=== PATIENT | female | born 1965 | race Caucasian/White ===

== ENCOUNTER 2020-12-01 13:52 | Outpatient (REF) | payer OTHER, SELFPAY ==
--- NOTE | ~2020-12-01 | MM_ITS ---
EXAMINATION: MM SCREENING DIGITAL BREAST TOMOSYNTHESIS, BILATERAL CLINICAL INFORMATION: Screening. Asymptomatic. The lifetime risk of breast cancer based on the Tyrer-Cuzick Model is 11%. COMPARISON: Mammography: 06/11/2019, 03/03/2018, 03/06/2012 TECHNIQUE: Digital breast tomosynthesis is performed in both the craniocaudal and mediolateral oblique views along with computer-aided detection (CAD). Synthesized 2D images are generated from the tomosynthesis. FINDINGS: There are scattered areas of fibroglandular density (ACR BI-RADS breast composition Category b). There are no significant masses, abnormal calcifications, or other abnormalities. Parenchymal pattern is similar to prior studies. There is no developing density. No significant changes. MM/MM tomosynthesis screening BI IMPRESSION: No mammographic evidence of malignancy. ASSESSMENT: BI-RADS 1: Negative RECOMMENDATION: Routine annual mammography screening. This patient's information was entered into a reminder system with a target due date for their next mammogram.
== END 2020-12-01 13:53 | disposition home or self-care (01) ==
LOC: HO.MAMMO 13:52
PROVIDERS: PCP Internal Medicine; Visit Provider Internal Medicine
DX: Z12.31 Encounter for screening mammogram for malignant neoplasm of breast (principal)
CPT/HCPCS: 77063; 77067

== ENCOUNTER 2021-03-08 11:27 | Outpatient (REF) | payer OTHER, SELFPAY ==
[2021-03-08 13:57] LABS: Hematocrit 38.6 % (37.0-47.0); Hemoglobin 12.4 g/dl (12.0-16.0); Mean Corpuscular HGB Conc 32.1 g/dl (31.0-35.0); Mean Corpuscular Hemoglobin 29.8 pg (27.0-33.0); Mean Corpuscular Volume 92.8 fL (80.0-98.0); Mean Platelet Volume 10.4 fL (9.4-12.3); Platelet Count 381 X10*3/uL (160-400); Red Blood Count 4.16 X10*6/uL (4.20-5.50); Red Cell Distribution Width 12.6 % (11.0-16.0); White Blood Count 6.5 X10*3/uL (4.8-10.8)
[2021-03-08 14:16] LABS: Alanine Aminotransferase 21 U/L (0-31); Albumin Level 4.1 g/dL (3.5-5.0); Alkaline Phosphatase 80 U/L (39-117); Anion Gap 12 (12-20); Aspartate Amino Transferase 27 U/L (5-31); Bilirubin Total 0.8 mg/dL (0.0-1.0); Blood Urea Nitrogen 18 mg/dL (9-16); Calcium 9.1 mg/dL (8.4-10.2); Carbon Dioxide 30 mmol/L (22-29); Chloride 102 mmol/L (96-108); Cholesterol 200 mg/dL; Estimated Glomerular Filt Rate > 60; Glucose Fasting 83 mg/dL (60-99); HDL Cholesterol 58 mg/dL; LDL Cholesterol Calculated 121 mg/dl; Potassium 4.6 mmol/L (3.3-5.1); Sodium 139 mmol/L (135-145); Total Protein 7.3 g/dL (6.5-8.0); Triglycerides 107 mg/dL
[2021-03-08 14:41] LABS: TSH reflex Free T4 1.98 uIU/mL (0.32-4.0); Vitamin D 25-OH Total 24.7 ng/mL (>30)
== END 2021-03-08 11:28 | disposition home or self-care (01) ==
LOC: HO.HMGCLDS 11:27
PROVIDERS: PCP Internal Medicine; Visit Provider Internal Medicine
DX: Z00.00 Encounter for general adult medical examination without abnormal findings (principal)
CPT/HCPCS: 36415; 80053; 80061; 82306; 84443; 85027

== ENCOUNTER 2021-12-03 12:33 | Outpatient (REF) | payer OTHER, SELFPAY ==
--- NOTE | ~2021-12-03 | MM_ITS ---
EXAMINATION: MM SCREENING DIGITAL BREAST TOMOSYNTHESIS, BILATERAL CLINICAL INFORMATION: Screening. Asymptomatic. The lifetime risk of breast cancer based on the Tyrer-Cuzick Model is 11%. COMPARISON: Mammography: 12/01/2020, 06/11/2019, 03/03/2018 TECHNIQUE: Digital breast tomosynthesis is performed in both the craniocaudal and mediolateral oblique views along with computer-aided detection (CAD). Synthesized 2D images are generated from the tomosynthesis. FINDINGS: There are scattered areas of fibroglandular density (ACR BI-RADS breast composition Category b). There are no significant masses, abnormal calcifications, or other abnormalities. Parenchymal pattern is similar to prior studies. There is no developing density or architectural abnormality. The axilla and skin contours are unremarkable. No significant changes. MM/MM tomosynthesis screening BI IMPRESSION: No mammographic evidence of malignancy. ASSESSMENT: BI-RADS 1: Negative RECOMMENDATION: Routine annual mammography screening. This patient's information was entered into a reminder system with a target due date for their next mammogram.
== END 2021-12-03 12:34 | disposition home or self-care (01) ==
LOC: HO.MAMMO 12:33
PROVIDERS: Visit Provider Internal Medicine
DX: Z12.31 Encounter for screening mammogram for malignant neoplasm of breast (principal)
CPT/HCPCS: 77063; 77067

== ENCOUNTER 2022-01-18 18:44 | Emergency (ER) | payer OTHER, SELFPAY ==
--- NOTE | ~2022-01-18 | US_ITS ---
EXAMINATION: US VENOUS ULTRASOUND WITH DOPPLER LOWER EXTREMITY, LEFT CLINICAL INFORMATION: Onset of pain with ambulation COMPARISON: None TECHNIQUE: Ultrasound of the deep veins is performed from the hip to the calf with compression sonography and color and pulse Doppler assessment. Spectral analysis with color-flow imaging is performed. FINDINGS: There is normal venous compression and respiratory variation and augmented flow. The visualized common femoral vein, superficial femoral vein, profunda femoral vein, popliteal vein, and the trifurcation region shows no evidence of deep venous thrombosis. There is a joint effusion left knee. This measures approximately 8.4 x 2.5 cm.. The fluid is mildly complex with low-level echoes in the fluid. There is a popliteal fossa cyst measuring 4.2 x 1.5 cm. If the patient's symptoms persist, followup ultrasound in 5 days 7 days might be of value to exclude proximal propagation from a non-visualized calf vein. US/US venous duplex LE LT IMPRESSION: 1. No DVT demonstrated in the left lower extremity. 2. Joint effusion in the knee. 3. Popliteal fossa cyst.
--- NOTE | ~2022-01-18 | XR_ITS ---
EXAMINATION: XR knee LT 2V, XR hip LT min 2V CLINICAL INFORMATION: Reason for Exam pain w/ ambulation COMPARISON: None. TECHNIQUE: Single AP view of the pelvis and AP and frog lateral views of the left hip. 2 views of left knee FINDINGS: No acute fracture or dislocation. Pelvic ring intact. Femoral heads are spherical. Mild bilateral sacroiliac arthrosis. Moderate tricompartmental marginal osteophytes. Narrowing of the medial tibiofemoral compartment joint space. Large knee joint effusion. There is a sclerotic lesion in the proximal left fibula, with rings and arcs morphology is suggestive of a low-grade chondroid lesion such as an enchondroma. XR/XR knee LT 2V IMPRESSION: * No acute fracture or dislocation. * Moderate tricompartmental degenerative change of the knee joint, worse within the medial compartment. * Large knee joint effusion. * Incidental probable enchondroma within the proximal left fibula. Recommend follow-up x-rays of the left knee 12 months.
--- NOTE | ~2022-01-18 | XR_ITS ---
EXAMINATION: XR knee LT 2V, XR hip LT min 2V CLINICAL INFORMATION: Reason for Exam pain w/ ambulation COMPARISON: None. TECHNIQUE: Single AP view of the pelvis and AP and frog lateral views of the left hip. 2 views of left knee FINDINGS: No acute fracture or dislocation. Pelvic ring intact. Femoral heads are spherical. Mild bilateral sacroiliac arthrosis. Moderate tricompartmental marginal osteophytes. Narrowing of the medial tibiofemoral compartment joint space. Large knee joint effusion. There is a sclerotic lesion in the proximal left fibula, with rings and arcs morphology is suggestive of a low-grade chondroid lesion such as an enchondroma. XR/XR hip LT min 2V IMPRESSION: * No acute fracture or dislocation. * Moderate tricompartmental degenerative change of the knee joint, worse within the medial compartment. * Large knee joint effusion. * Incidental probable enchondroma within the proximal left fibula. Recommend follow-up x-rays of the left knee 12 months.
[2022-01-18 19:23] VITALS: PULSE 77; RESP 18; TEMP 37.2; O2SAT 100; BMI 34.7
--- NOTE | 2022-01-18 20:50 | ED_ITS ---
HPI - Extremity Problem General Chief complaint: Extremity Problem Stated complaint: ? blood clot let leg pain Source: patient Mode of arrival: ambulatory Limitations: no limitations History of Present Illness HPI Narrative: 56-year-old female presents with a sudden onset of left knee pain and swelling. Patient was working, sitting at her desk, and stated that she had extraordinary pain and was unable to ambulate without assistance. She does not report any trauma, denies falls, denies blood thinners, fevers, chills, recent travel, is not immunocompromised, and denies hormone replacement therapy. MD Complaint: extremity pain and extremity swelling Onset (ago): hour(s) (Within the hour of arrival) Pain Consistency: constant Location: left and knee Severity scale (1-10): 10 Quality: aching Radiation: distal Relieving factors: elevation and rest Exacerbating factors: range of motion, weight bearing and palpation Associated symptoms: denies other symptoms Related Data Home Medications Medication Instructions Recorded Confirmed docusate sodium 50 mg capsule 50 mg PO DAILY 03/08/21 03/08/21 (Stool Softener) loratadine 10 mg capsule 10 mg PO DAILY 03/08/21 03/08/21 [id number] 18 mg-FA 400 tab PO 12/22/21 mcg-calcium 500 mg-vit K 50 mcg tablet (Women's Multivitamin) Previous Rx's Medication Instructions Recorded clotrimazole 1 % topical cream 1 appl topical BID 2 weeks #15 12/22/21 (Antifungal (clotrimazole)) grams amoxicillin 875 mg-potassium 1 tab PO Q12H 10 days #20 tabs 01/19/22 clavulanate 125 mg tablet Allergies Allergy/AdvReac Type Severity Reaction Status Date / Time No Known Allergies Allergy Unverified 12/22/21 11:00 cats Allergy Unknown sneezing, Uncoded 12/22/21 11:00 itching, runny nose. Hayfebrol Allergy Unknown sneezing, Uncoded 12/22/21 11:00 watery eyes Review of Systems Review of Systems: Constitutional: No Fever, No Chills ENT/Mouth: No Ear Pain, No Hoarseness, No sore throat Eyes: No Eye Pain, No Swelling, No Redness, No Foreign Body Cardiovascular: No Chest Pain, No SOB Respiratory: No Cough, No Dyspnea Gastrointestinal: No Nausea, No Vomiting, No Diarrhea, No abdominal Pain Genitourinary: No Dysuria, No Hematuria Musculoskeletal: positive left knee pain, No Myalgias, No Joint Swelling Skin: No Skin lacerations, No rash Neuro: No Weakness, No Numbness, No Paresthesias, No Loss of Consciousness, No Dizziness, No Headache Psych: No Anxiety/Panic, No Depression Heme/Lymph: no easy bruising, no Lymphadenopathy Endocrine: No Polyuria, No Polydipsia Yes all other systems are reviewed and are negative [facility] Past Medical History Attestation statement: The following information was validated with the patient. 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 Oriented X3. No acute distress. Eyes: Pupils equal, round and reactive to light. ENT: Pharynx normal. Neck: Normal inspection. Neck supple. CVS: Normal heart rate and rhythm. Pulses normal. Respiratory: No respiratory distress. Breath sounds normal. Abdomen: Soft and nontender. Skin: Skin warm and dry. Normal skin color. Normal skin turgor. Extremities: No lower extremity edema. Decreased flexion extension of the left extremity, negative anterior posterior drawer. Brisk capillary refill in equal pulses to bilateral lower extremities. Neuro: No motor deficit. No sensory deficit. Cranial nerves 2-12 intact. Course Course Course Narrative: 56-year-old female presents with the sudden onset of nontraumatic left knee pain and swelling. States that she walks on a regular basis not today, does not report any trauma or falls recently. She is not on any blood thinners, denies hormone use, recent travel, and immuno therapeutics. Labs indicate an elevated white count of 13.8, x-rays, and ultrasound are pending. 23:00 large left knee effusion with incidental finding of enchondroma. Ultrasound negative for DVT. 00:33 50 mL of heme aspirated from left joint effusion. Prepped and draped in sterile fashion. Patient tolerated procedure well. Please refer to procedure note for full details. Patient does have an elevated white count, plan of care is to treat with Augmentin and have patient follow-up with orthopedics. I did give patient crutches because she is having difficult ambulation. Patient verbalized understanding of and agrees to plan of care discharge home. Verbalized understanding of signs and symptoms indicating need for emergent intervention. MDM - Extremity (Nontraumatic) MDM Narrative Medical decision making narrative: Effusion, Machuca's cyst, sprain, Differential Diagnosis Differential diagnosis: Likely cellulitis and deep venous thrombosis of upper extremity Medical Records Attestation: I reviewed the patient's medical records. Lab Data Attestation: I reviewed the patient's lab results. Result diagrams: 01/18/22 22:55 01/18/22 22:55 Labs: Lab Results 01/18/22 01/18/22 01/18/22 Range/Units 22:55 22:55 22:55 WBC 13.8 H (4.8-10.8) X10*3/uL RBC 4.12 L (4.20-5.50) X10*6/uL Hgb 12.3 (12.0-16.0) g/dl Hct 37.8 (37.0-47.0) % MCV 91.7 (80.0-98.0) fL MCH 29.9 (27.0-33.0) pg MCHC 32.5 (31.0-35.0) g/dl RDW 12.7 (11.0-16.0) % Plt Count 344 (160-400) X10*3/uL MPV 9.6 (9.4-12.3) fL Immature Gran % (Auto) 0.4 (0.0-0.4) % Neut % (Auto) 86.8 H (45-73) % Lymph % (Auto) 8.3 L (20-40) % [place] % (Auto) 3.9 (2-11) % Eos % (Auto) 0.2 (0-4) % Baso % (Auto) 0.4 (0-2) % Lymph # (Auto) 1.2 (1.2-4.9) X10*3/uL [place] # (Auto) 0.5 (0.1-1.2) X10*3/uL Eos # (Auto) 0.0 (0.0-0.4) X10*3/uL Baso # (Auto) 0.1 (0.0-0.2) X10*3/uL Abs Immat Gran (auto) 0.05 H (0.00-0.03) X10*3/uL Absolute Neuts (auto) 12.0 H (2.0-8.3) x10*3/uL Absolute Nucleated RBC 0.000 (0.0-0.012) X10*3/uL Nucleated RBC % (auto) 0.0 (0.0-0.2) /100WBC ESR (0-20) MM/HR Sodium 140 (135-145) mmol/L Potassium 4.3 (3.3-5.1) mmol/L Chloride 101 (96-108) mmol/L Carbon Dioxide 25 (22-29) mmol/L Anion Gap 18 (12-20) BUN 19 H (9-16) mg/dL Creatinine 0.94 (0.5-1.4) mg/dL Estim Creat Clear Calc 82.5 Estimated GFR > 60 Random Glucose 103 (60-115) mg/dL Calcium 9.4 (8.4-10.2) mg/dL Total Bilirubin 0.7 (0.0-1.0) mg/dL AST 22 (5-31) U/L ALT 17 (0-31) U/L Alkaline Phosphatase 89 (39-117) U/L C-Reactive Protein 0.28 (< or = 0.50) mg/dL Total Protein 7.5 (6.5-8.0) g/dL Albumin 4.3 (3.5-5.0) g/dL Synovial Source Synovial WBC X10*3/uL Synovial RBC X10*6/uL Synovial Neutrophils % Synovial Lymphocytes % Synovial Monocytes % Synovial Eosinophils % 01/18/22 01/19/22 Range/Units 22:56 00:52 WBC (4.8-10.8) X10*3/uL RBC (4.20-5.50) X10*6/uL Hgb (12.0-16.0) g/dl Hct (37.0-47.0) % MCV (80.0-98.0) fL MCH (27.0-33.0) pg MCHC (31.0-35.0) g/dl RDW (11.0-16.0) % Plt Count (160-400) X10*3/uL MPV (9.4-12.3) fL Immature Gran % (Auto) (0.0-0.4) % Neut % (Auto) (45-73) % Lymph % (Auto) (20-40) % [place] % (Auto) (2-11) % Eos % (Auto) (0-4) % Baso % (Auto) (0-2) % Lymph # (Auto) (1.2-4.9) X10*3/uL [place] # (Auto) (0.1-1.2) X10*3/uL Eos # (Auto) (0.0-0.4) X10*3/uL Baso # (Auto) (0.0-0.2) X10*3/uL Abs Immat Gran (auto) (0.00-0.03) X10*3/uL Absolute Neuts (auto) (2.0-8.3) x10*3/uL Absolute Nucleated RBC (0.0-0.012) X10*3/uL Nucleated RBC % (auto) (0.0-0.2) /100WBC ESR 27 H (0-20) MM/HR Sodium (135-145) mmol/L Potassium (3.3-5.1) mmol/L Chloride (96-108) mmol/L Carbon Dioxide (22-29) mmol/L Anion Gap (12-20) BUN (9-16) mg/dL Creatinine (0.5-1.4) mg/dL Estim Creat Clear Calc Estimated GFR Random Glucose (60-115) mg/dL Calcium (8.4-10.2) mg/dL Total Bilirubin (0.0-1.0) mg/dL AST (5-31) U/L ALT (0-31) U/L Alkaline Phosphatase (39-117) U/L C-Reactive Protein (< or = 0.50) mg/dL Total Protein (6.5-8.0) g/dL Albumin (3.5-5.0) g/dL Synovial Source Left knee Synovial WBC 6.059 X10*3/uL Synovial RBC 3.040 X10*6/uL Synovial Neutrophils 75 % Synovial Lymphocytes 19 % Synovial Monocytes 5 % Synovial Eosinophils 1 % Imaging Data Knee x-ray: Attestation: I personally reviewed and interpreted this imaging study as follows: Radiologist's impression: EXAMINATION: XR knee LT 2V, XR hip LT min 2V CLINICAL INFORMATION: Reason for Exam pain w/ ambulation COMPARISON: None. TECHNIQUE: Single AP view of the pelvis and AP and frog lateral views of the left hip. 2 views of left knee FINDINGS: No acute fracture or dislocation. Pelvic ring intact. Femoral heads are spherical. Mild bilateral sacroiliac arthrosis. Moderate tricompartmental marginal osteophytes. Narrowing of the medial tibiofemoral compartment joint space. Large knee joint effusion. There is a sclerotic lesion in the proximal left fibula, with rings and arcs morphology is suggestive of a low-grade chondroid lesion such as an enchondroma. XR/XR knee LT 2V IMPRESSION: *? No acute fracture or dislocation. *? Moderate tricompartmental degenerative change of the knee joint, worse within the medial compartment. *? Large knee joint effusion. *? Incidental probable enchondroma within the proximal left fibula. Recommend follow-up x-rays of the left knee 12 months. Left upper extremity duplex: Attestation: I personally reviewed and interpreted this imaging study as follows: Radiologist's impression: FINDINGS: There is normal venous compression and respiratory variation and augmented flow. The visualized common femoral vein, superficial femoral vein, profunda femoral vein, popliteal vein, and the trifurcation region shows no evidence of deep venous thrombosis. There is a joint effusion left knee. This measures approximately 8.4 x 2.5 cm.. The fluid is mildly complex with low-level echoes in the fluid. There is a popliteal fossa cyst measuring 4.2 x 1.5 cm. If the patient's symptoms persist, followup ultrasound in 5 days 7 days might be of value to exclude proximal propagation from a non-visualized calf vein. US/US venous duplex LE LT IMPRESSION: ? 1. No DVT demonstrated in the left lower extremity. 2. Joint effusion in the knee. 3. Popliteal fossa cyst. Discharge Plan Discharge Clinical Impression: Hemarthrosis, Effusion of knee joint, left, Enchondroma of bone Patient Disposition: Home, Self-Care Instructions: Swollen Joint (ED), Benign Bone Tumor (DC), Joint Aspiration (DC) Additional Instructions: You were evaluated for left knee pain. You have a large left joint effusion, I aspirated 50 mL of blood from that a fusion site. Please follow-up with Orthopedics, I have referred you to [facility]. please call for an appointment. Please keep compression wrap on to reduce swelling. Take Augmentin 875 mg twice a day for the next 10 days. Take Tylenol 650 mg every 6 hours as needed for pain management. Rest ice and elevate the extremity to help reduce pain. Do not take Advil, which is the same medication is Motrin and ibuprofen, because you are bleeding inside the joint. Thank you for choosing this emergency department for evaluation. Please follow-up with primary care physician as needed. Return to the emergency department for any new, concerning, or worsening symptoms. Prescriptions: New amoxicillin-pot clavulanate 875-125 mg tablet 1 tab PO Q12H 10 Days Qty: 20 0RF No Action loratadine 10 mg capsule 10 mg PO DAILY Stool Softener 50 mg capsule 50 mg PO DAILY Women's Multivitamin 18 mg-400 mcg- 500 mg-50 mcg tablet PO clotrimazole [Antifungal (clotrimazole)] 1 % cream 1 appl topical BID 14 Days Qty: 15 0RF Referrals: Nancy Painting PA-C [Physician Internal Controls Consultant] - 2 days (Hemarthrosis to the left knee with large effusion)
[2022-01-18 23:02] LABS: MANUAL DIFF FLAG NO
[2022-01-18 23:03] LABS: Basophils Absolute Auto 0.1 X10*3/uL (0.0-0.2); Basophils Percent Auto 0.4 % (0-2); Eosinophils Percent Auto 0.2 % (0-4); Hematocrit 37.8 % (37.0-47.0); Hemoglobin 12.3 g/dl (12.0-16.0); Imm Gran Abs Auto 0.05 X10*3/uL (0.00-0.03); Imm Gran Pct Auto 0.4 % (0.0-0.4); Lymphocytes Absolute Auto 1.2 X10*3/uL (1.2-4.9); Lymphocytes Percent Auto 8.3 % (20-40); Mean Corpuscular HGB Conc 32.5 g/dl (31.0-35.0); Mean Corpuscular Hemoglobin 29.9 pg (27.0-33.0); Mean Corpuscular Volume 91.7 fL (80.0-98.0); Mean Platelet Volume 9.6 fL (9.4-12.3); Monocytes Absolute Auto 0.5 X10*3/uL (0.1-1.2); Monocytes Percent Auto 3.9 % (2-11); Neutrophils Percent Auto 86.8 % (45-73); Platelet Count 344 X10*3/uL (160-400); Red Blood Count 4.12 X10*6/uL (4.20-5.50); Red Cell Distribution Width 12.7 % (11.0-16.0); White Blood Count 13.8 X10*3/uL (4.8-10.8)
[2022-01-18 23:18] LABS: C Reactive Protein 0.28 mg/dL (< or = 0.50)
[2022-01-18 23:21] LABS: Alanine Aminotransferase 17 U/L (0-31); Albumin Level 4.3 g/dL (3.5-5.0); Alkaline Phosphatase 89 U/L (39-117); Anion Gap 18 (12-20); Aspartate Amino Transferase 22 U/L (5-31); Bilirubin Total 0.7 mg/dL (0.0-1.0); Blood Urea Nitrogen 19 mg/dL (9-16); Calcium 9.4 mg/dL (8.4-10.2); Carbon Dioxide 25 mmol/L (22-29); Chloride 101 mmol/L (96-108); Creatinine Clr Calc Pharmacy 82.5; Estimated Glomerular Filt Rate > 60; Glucose Random 103 mg/dL (60-115); Potassium 4.3 mmol/L (3.3-5.1); Sodium 140 mmol/L (135-145); Total Protein 7.5 g/dL (6.5-8.0)
[2022-01-18 23:44] LABS: Erythrocyte Sedimentation Rate 27 MM/HR (0-20)
[2022-01-18] MEDS: Lidocaine HCl 1 % MPF 2 ML VIAL 4 ML INFILTRATI (23:47)
[2022-01-19 00:13] VITALS: BP 137/82; PULSE 88; RESP 16; TEMP 37.2; O2SAT 99
[2022-01-19 01:07] LABS: Source Synovial Fluid Left knee
[2022-01-19 01:08] LABS: MN% 31.8 %; PMN% 68.2 %; WBC Synovial Fluid 6.059 X10*3/uL
[2022-01-19 01:41] LABS: BF Shift QC OK YES; Eosinophils Synovial Fluid 1 %; Monocytes Synovial Fluid 5 %
[2022-01-19 01:42] LABS: Lymphocytes Synovial Fluid 19 %; Neutrophils Synovial Fluid 75 %
[2022-01-19 02:22] VITALS: BP 147/71; PULSE 85; RESP 16; TEMP 37.2; O2SAT 97
[2022-01-19] MEDS: Amoxicillin/Potassium Clav 875 MG TABLET PO (02:39)
[2022-01-19 03:53] LABS: Glucose Synovial Fluid 59 MG/DL; Total Protein Synovial Fluid 6.2 GM/DL
== END 2022-01-19 02:46 | disposition home or self-care (01) ==
PROVIDERS: Nurse Practitioner Family; Emergency Provider Emergency Medicine; PCP Internal Medicine
DX: M25.062 Hemarthrosis, left knee (principal); D16.22 Benign neoplasm of long bones of left lower limb; M25.552 Pain in left hip; M25.562 Pain in left knee; Z79.899 Other long term (current) drug therapy
CPT/HCPCS: 36415; 73502; 73560; 80053; 82945; 84157; 85025; 85652; 86140; 87070; 87073; 87205; 89051; 89060; 93971; 99283; 99285

== ENCOUNTER 2022-12-09 12:12 | Outpatient (REF) | payer OTHER, SELFPAY | END 2022-12-09 12:13 | disposition home or self-care (01) | LOC: HO.MAMMO 12:12 | PROVIDERS: PCP Internal Medicine; Visit Provider Internal Medicine | DX: Z12.31 Encounter for screening mammogram for malignant neoplasm of breast (principal) | CPT/HCPCS: 77063; 77067 ==

== ENCOUNTER → 2022-12-09 12:30 | Outpatient (BNV) | payer OTHER, SELFPAY | PROVIDERS: PCP Internal Medicine; Visit Provider Radiology Diagnostic Radiology | DX: Z12.31 Encounter for screening mammogram for malignant neoplasm of breast (principal) | CPT/HCPCS: 77063; 77067 ==

== ENCOUNTER 2025-01-28 12:08 | Outpatient (REF) | payer OTHER, SELFPAY ==
--- NOTE | ~2025-01-28 | XR_ITS ---
EXAMINATION: XR KNEE, LEFT CLINICAL INFORMATION: M25.562 - Pain in left knee COMPARISON: 01/18/2022. TECHNIQUE: Four views of the left knee. FINDINGS: No fracture or dislocation. Normal bone mineralization. There is a stable mixed sclerotic and lucent lesion in the left fibular head, consistent with a stable enchondroma. This has no aggressive features and has remained unchanged. Normal alignment. There is tricompartmental osteoarthritis present, moderate in the medial compartment, and severe in the patellofemoral compartment. There is a moderate sized suprapatellar effusion present. Soft tissues appear normal. XR/XR knee LT 4V IMPRESSION: 1. No acute bony abnormalities. 2. Moderate sized suprapatellar joint effusion. 3. Tricompartmental osteoarthritis, severe in the patellofemoral compartment and moderate in the medial compartment. This has remained stable. 4. Stable enchondroma in the left fibular head. Electronically signed by: Aly Calvin MD 01/28/2025 01:27 PM EDT
== END 2025-01-28 12:09 | disposition home or self-care (01) ==
LOC: HO.HMGCX 12:08
PROVIDERS: PCP Internal Medicine; Visit Provider Internal Medicine
DX: Z00.00 Encounter for general adult medical examination without abnormal findings (principal); L72.9 Follicular cyst of the skin and subcutaneous tissue, unspecified; M25.562 Pain in left knee; Z79.899 Other long term (current) drug therapy
CPT/HCPCS: 73564; 96127; 99396

== ENCOUNTER 2025-01-28 12:08 | Outpatient (AMB) | payer OTHER, SELFPAY ==
[2025-01-28 12:11] VITALS: BP 126/72; PULSE 83; RESP 18; TEMP 36.8; O2SAT 97; BMI 35.5
--- NOTE | 2025-01-28 12:11 | A.OFFPC_ITS ---
Vital Signs 01/28/25 12:11 Height 5 ft 7 in Weight 227 lb BMI 35.5 BP 126/72 Blood Pressure Location Lt brachial Position Sitting Respiration 18 Pulse 83 Pulse Source Pulse Oximeter Temp 98.3 F Temp Source Oral Pulse Oximetry (%) 97 Oxygen Delivery Method Room Air Intake Visit Reasons: pe Intake Note: Pt is here today for PE. Allergies cats Allergy (Unknown, Uncoded 01/28/25 12:15) sneezing, itching, runny nose. Hayfebrol Allergy (Unknown, Uncoded 01/28/25 12:15) sneezing, watery eyes Medication List - Last Reconciled 01/28/25 by Elisabeth Valero MD cholecalciferol (vitamin D3) PO docusate sodium (Stool Softener) 50 mg PO DAILY loratadine 10 mg PO DAILY fm-gd-yhyo-FA-Ca carb-vit K 18 mg-400 mcg- 500 mg-50 mcg (Women's Multivitamin) tabs PO Tobacco use date assessed: 01/28/25 Dental Screening Dental Screen Date: 01/28/25 Did you have a dental visit in the last 12 months?: Yes Did you have a dental problem in the last 6 months where you did not have access to dental care?: No Was dental information given to patient?: Patient has dentist HPI pe HPI Details Patient presents for physical. She complains of chronic recurrent left knee discomfort and swelling worse for the last 3 weeks. Patient denies any injury but has been physically active walking and doing taekwondo with her children. [facility] Medical History (Updated 01/28/25 @ 12:57 by Elisabeth Valero MD) Scalp cyst Overweight Knee pain, left Normal breast exam Annual physical exam Surgical History H/O colonoscopy Family History Father Diabetes Mother No problems noted. 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 1. Little interest or pleasure in doing things: not at all 2. Feeling down, depressed, or hopeless: not at all 3. Trouble falling or staying asleep, or sleeping too much: not at all 4. Feeling tired or having little energy: not at all 5. Poor appetite or overeating: not at all 6. Feeling bad about yourself - or that you are a failure or have let yourself or your family down: not at all 7. Trouble concentrating on things, such as reading the newspaper or watching television: not at all 8. Moving or speaking so slowly that other people could have noticed. Or the opposite - being so fidgety or restless that you have been moving around a lot more than usual: not at all 9. Thoughts that you would be better off or of hurting yourself in some way: not at all Total score: 0 Depression Screening Interpretation: Negative Depression Screening Done: Yes 07000 - PHQ-9 Billing: Yes Source: Developed by Drs. Thomas Gonsales, Jaquelin Purvis, Lam Dupree and colleagues, with an educational ata from [employer]. Thrive Questionnaire Date Thrive assessed: 06/27/22 I am a: Patient What is your living situation today?: I have a steady place to live Within the past 12 months, did the food you bought not last and you didn't have the money to get more?: Never true Within the past 12 months, did you worry whether your food would run out before you got money to buy more?: Never true Do you have trouble paying for medicines?: No Do you have trouble getting transportation to medical appointments?: No Do you have trouble paying your heating and electricity bill?: No Do you have trouble taking care of your child, family member or friend?: No Do you have trouble with day-to-day activities such as bathing, preparing meals, shopping, managing finances, etc.?: No Are you currently unemployed and looking for a job?: No Are you interested in more education?: No Please select the resources that you would like help with: None Currently or been in a relationship where the following occur: No concerns reported THRIVE Score: 0 AUDIT C Alcohol Use Questionnaire (AUDIT-C) 1. How often do you have a drink containing alcohol?: Never 3. How often do you have six or more drinks on one occasion?: Never Total Score: 0 JV-7 AMB Questionnaire JV-7 Date JV - 7 assessed: 01/28/25 Feeling nervous, anxious, or on edge: 0 = Not at all Not being able to stop or control worryin = Not at all Worrying too much about different things: 0 = Not at all Trouble relaxin = Not at all Being so restless that it is hard to sit still: 0 = Not at all Becoming easily annoyed or irritable: 0 = Not at all Feeling afraid as if something awful might happen: 0 = Not at all Total JV-7 score (0-4 normal; 5-9 mild; 10-14 moderate; 15-21 severe): 0 Source: Developed by Drs. Thomas Gonsales, Jaquelin Purvis, Lam Dupree and colleagues, with an educational ata from [employer]. JV-7 Assessment Billing JV-7 Assessment Tool: JV-7 Assessment 54860 Review of Systems Const All systems reviewed & are unremarkable except as noted in HPI and below Eyes Reports no additional complaints ENT Reports no additional complaints Card Reports no additional complaints Resp Reports no additional complaints GI Reports no additional complaints Reports no additional complaints Musc Reports no additional complaints Physical exam (Primary Care) Vital Signs: Last Vital Signs Temp 98.3 F 01/28/25 12:11 Pulse 83 01/28/25 12:11 Resp 18 01/28/25 12:11 BP 126/72 01/28/25 12:11 Pulse Ox 97 01/28/25 12:11 Oxygen Delivery Method Room Air 01/28/25 12:11 BMI result Body Mass Index 35.5 Tobacco/Smoking Status: Tobacco use Status Tobacco use date assessed 01/28/25 01/28/25 12:20 Patient Tobacco Use Status Never used Tobacco 01/28/25 12:13 e-Cigarette/Vaping Use Never Used 01/28/25 12:13 PHQ-9: PHQ-9 Score PHQ-9: Total score 0 01/28/25 12:20 Depression Screening Interpretation: Negative Thrive Assessment: Date of Thrive Assessment Date Thrive assessed 06/27/22 01/28/25 12:13 Currently or been in a relationship where the following occur: No concerns reported Const General: no acute distress HENMT Head: Yes normal to inspection Ears: TM's normal bilaterally Mouth: Normal oral and palatal mucosa present Throat: Yes posterior oropharynx normal Eyes General: appearance normal, both eyes and all related structures Neck Neck: Yes no lymphadenopathy and Yes supple Resp Effort & Inspection: normal respiratory effort Auscultation: clear to auscultation bilaterally Cardio Rhythm: regular rhythm Heart sounds: S1 normal heart sound present and S2 normal heart sound present GI Inspection: Yes normal to inspection Palpation (GI): Soft to palpation Percussion: Yes normal to percussion Auscultation: normal bowel sounds Extrem Other: There is slightly decreased range of motion and crepitus in left knee. There soft tissue swelling mainly in the medial aspect of the left knee but no erythema warmth General: Yes no clubbing, cyanosis or edema Coding Level of Care Code Est Pt Prev Care 40-64y(89770) Diagnoses Annual physical exam Z00.00 Knee pain, left M25.562 Scalp cyst L72.9 Additional Codes JV-7 Assessment Billing - JV-7 Assessment Tool: JV-7 Assessment 21950 ([id number]) PHQ-9 - 21698 - PHQ-9 Billing: Yes ([id number]) Assessment & Plan Assessment & Plan (1) Annual physical exam: Comment: Patient refused Pap smear Code(s): Z00.00 - Encounter for general adult medical examination without abnormal findings Category: Medical Plan: Well-balanced diet regular exercise weight loss discussed with the patient she will schedule mammogram at [facility], patient is up-to-date with colonoscopy and declined Pap smear (2) Knee pain, left: Comment: moderate OA 2021 Code(s): M25.562 - Pain in left knee Category: Medical Plan: For persistent left knee pain and swelling obtain x-ray and referred to physical therapy (3) Scalp cyst: Comment: multiple, refer to Dr. Ritter Code(s): L72.9 - Follicular cyst of the skin and subcutaneous tissue, unspecified Category: Medical Plan: Referred to general surgeon Orders: Orders UA w [place] Today E55.9 - Vitamin D deficiency, unspecified, Z00.00 - Encounter for general adult medical examination without abnormal findings Comprehensive [place]. Panel Fast Today E55.9 - Vitamin D deficiency, unspecified, Z00.00 - Encounter for general adult medical examination without abnormal findings Complete Blood Count Auto Diff Today E55.9 - Vitamin D deficiency, unspecified, Z00.00 - Encounter for general adult medical examination without abnormal findings Lipid Panel Today E55.9 - Vitamin D deficiency, unspecified, Z00.00 - Encounter for general adult medical examination without abnormal findings TSH reflex Free T4 Today E55.9 - Vitamin D deficiency, unspecified, Z00.00 - Encounter for general adult medical examination without abnormal findings Vitamin D 25-OH Total Today E55.9 - Vitamin D deficiency, unspecified, Z00.00 - Encounter for general adult medical examination without abnormal findings Rubeola IgG (Measles) Today E55.9 - Vitamin D deficiency, unspecified, Z00.00 - Encounter for general adult medical examination without abnormal findings XR knee LT 3V Today M25.562 - Pain in left knee PT Evaluation and Treatment Today M25.562 - Pain in left knee Referrals General Surgery Referral L72.9 - Follicular cyst of the skin and subcutaneous tissue, unspecified
== END 2025-01-28 12:52 | disposition home or self-care (01) ==
PROVIDERS: PCP Internal Medicine; Visit Provider Internal Medicine
DX: Z00.00 Encounter for general adult medical examination without abnormal findings (principal); M25.562 Pain in left knee; L72.9 Follicular cyst of the skin and subcutaneous tissue, unspecified

== ENCOUNTER → 2025-01-28 13:02 | Outpatient (BNV) | payer OTHER, SELFPAY | PROVIDERS: PCP Internal Medicine; Visit Provider Radiology Diagnostic Radiology | DX: M25.462 Effusion, left knee (principal); M17.12 Unilateral primary osteoarthritis, left knee | CPT/HCPCS: 73564 ==

== ENCOUNTER 2025-03-10 12:58 | Outpatient (AMB) | payer OTHER, SELFPAY ==
--- NOTE | 2025-03-10 13:00 | A.OFFVIS_ITS ---
<Statement entered by ERMELINDA Sexton - 03/11/25 14:45> Patient seen by Vj Gregorio./ CHATO WADSWORTH Vital Signs 3 03/10/25 13:10 Weight 230 lb BP 147/67 H Blood Pressure Location Rt brachial Position Sitting Pulse 85 Intake Visit Reasons: Follicular cyst of the skin and subcutaneous tissu Intake Note: Patient referred by PCP Dr. Valero for evaluation of cyst on scalp. Present for over 20yrs. Patient c/o: enlarging, uncomfortable, on and off painl. Eric oozing. 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 Hayfebrol Allergy (Unknown, Uncoded 03/10/25 13:09) sneezing, watery eyes Medication List - Last Reconciled 03/10/25 by Vj Gasca MD cholecalciferol (vitamin D3) PO docusate sodium (Stool Softener) 50 mg PO DAILY loratadine 10 mg PO DAILY xg-jp-mydy-FA-Ca carb-vit K 18 mg-400 mcg- 500 mg-50 mcg (Women's Multivitamin) tabs PO HPI Comments Details: The patient is a 59-year-old lady presenting with lumps on the scalp. The lumps have been present for over 20 years and were initially identified as wens by a previous physician. The patient reports multiple lumps on the scalp, with three larger ones being the primary concern. Occiput, crown and left temporal. The lumps are described as hard and tense, similar to a balloon when overinflated. The patient expresses a desire to avoid shaving hair during the procedure to excise. She also reports she would prefer to be out of it when the operation took place. [facility] Medical History Scalp cyst Overweight Knee pain, left Normal breast exam Annual physical exam Surgical History H/O colonoscopy Family History Father Diabetes Mother No problems noted. 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 2-3cm cystic structure 2. 2-3cm cystic structure 3. 2-3cm cystic structure Eyes General: appearance normal, both eyes and all related structures Pupils: Equal, round and reactive pupils present EOM: EOMs intact bilaterally Neck Neck: Yes normal visual inspection Chest Chest palpation & inspection: normal inspection of the chest Resp Effort & Inspection: normal respiratory effort and able to speak in complete sentences Cardio Rate: regular rate Rhythm: regular rhythm GI Inspection: Yes normal to inspection Back/Spine/Pelvis Thoracic/Lumbar Spine: thoracic and lumbar spine normal to inspection Neuro General: oriented to person, oriented to place and oriented to time Cranial nerves: Yes CN's II-XII intact bilaterally and Yes Equal, round and reactive pupils present Speech: Abnormal speech present Gait exam (Neuro): Normal gait present Extrem General: Yes normal to inspection Assessment & Plan Assessment & Plan (1) Pilar cysts: Code(s): L72.11 - Pilar cyst Category: Medical Plan: The patient has 3 pilar cysts on her scalp and she desires excision. I reviewed with her the nature of excisional biopsy for these problems and also reviewed with her the risks that are involved. These include but are not limited to the risk of bleeding the risk of infection the risk of chronic pain the risk of recurrence and the risk of unsightly scarring. She indicated that she understood. She indicated that she understood and accepted the risks that she described as inherent session undertaken in lastly indicated that she wished to proceed with surgery. Coding Level of Care Code New Pt Level 3 (81918) Diagnoses Pilar cysts L72.11 Time Spent (min) 30
[2025-03-10 13:10] VITALS: BP 147/67; PULSE 85
== END 2025-03-10 13:29 | disposition home or self-care (01) ==
LOC: HO.HGS 12:59
PROVIDERS: PCP Internal Medicine; Visit Provider Surgery
DX: L72.11 Pilar cyst (principal)
CPT/HCPCS: 99203

== ENCOUNTER → 2025-03-10 12:58 | Outpatient (BNVA) | payer OTHER, SELFPAY | PROVIDERS: PCP Internal Medicine; Visit Provider Surgery | DX: Z01.818 Encounter for other preprocedural examination (principal); L72.11 Pilar cyst | CPT/HCPCS: 99202 ==